=== PATIENT | male | born 1985 | race Caucasian/White ===

== ENCOUNTER 2024-09-21 07:33 | Outpatient (OUT) | payer OTHER, SELFPAY ==
--- OUTSIDE RECORDS SUMMARY | 2024-09-21 07:41 | XMS_ITS | Clinical Summary ---
Author Organization [facility] Address [id number] [address] [place] [address] Care Team Providers Care Records Technician Name Role Phone No Pcp, No Pcp Primary Care Provider Unavailabl e Allergies No known active allergies Medications No known medications Social History Tobacco Use Types Packs/Day Years Used Date Smoking Tobacco: Never Smokeless Tobacco: Never Alcohol Use Standard Drinks/Week Comments Not Currently 0 (1 standard drink = 0.6 oz pur e alcohol) Childcare Answer Date Recorded Childcare Unknown 10/04/2018 Employment Answer Date Recorded Employment Unknown 10/04/2018 Sex and Gender Information Value Date Recorded Sex Assigned at Not on file Legal Sex Male 11:37 AM EDT Gender Identity Not on file Sexual Orientation Not on file Last Filed Vital Signs Vital Sign Reading Time Taken Comments Blood Pressure 148/100 04/20/2021 1:02 PM EST Pulse 84 04/20/2021 1:02 PM EST Temperature 36.9 C (98.5 F) 04/20/2021 1:02 PM EST Respiratory Rate 20 04/20/2021 1:02 PM EST Oxygen Saturation 100% 04/20/2021 1:02 PM EST Inhaled Oxygen Concentration - - Weight 95.3 kg (210 lb) 04/20/2021 1:02 PM EST Height 175.3 cm (5' 9 ) 04/20/2021 1:02 PM EST Body Mass Index 31.01 04/20/2021 1:02 PM EST Plan of Treatment Not on file Medical Devices Not on file Insurance [employer] Care Teams Records Technician Relationship Specialty Start Date End Date No Pcp[place] [address] PCP - General Family Medicine 04/20/21
--- OUTSIDE RECORDS SUMMARY | 2024-09-21 07:41 | XMS_ITS | Clinical Summary ---
Author Organization [facility] Address [address] [place] [address] Care Team Providers Care Band Booker Name Role Phone Unavailable Primary Care Provider Unavailabl e Social History Tobacco Use Types Packs/Day Years Used Date Smoking Tobacco: Never Assessed Sex and Gender Information Value Date Recorded Sex Assigned at Not on file Legal Sex Male 11:47 PM EDT Gender Identity Not on file Sexual Orientation Not on file Plan of Treatment Not on file
--- NOTE | 2024-09-21 07:42 | XR_ITS ---
The [address] [address] Patient Name: CRYSTAL DURANT MRN: [id number] date: 1985 Sex: M Assigned Patient Location: [facility] Current Patient Location: [facility] Accession/Order Number: [id number] Exam Date: 09/21/2024 09:07 Report Date: 09/21/2024 09:13 At the request of: BARRY JI MD Procedure: XR ankle RT min 3V CLINICAL DATA: Patient was pushed by a forklift at work yesterday and has pain and tightness at the right foot and ankle today. RIGHT FOOT - 3 views COMPARISON: None AP, lateral and oblique views were obtained. There is no evidence of fracture or dislocation. There are no significant soft tissue abnormalities. XR/XR ankle RT min 3V IMPRESSION: NO ACUTE BONY INJURY. RIGHT ANKLE - 3 views COMPARISON: None AP, lateral and oblique views were obtained. There is no evidence of fracture or dislocation. Suspected os perineum an os trigonum are seen. The talar dome is intact. There are no significant soft tissue abnormalities. IMPRESSION: NO ACUTE BONY INJURY. Impression dictated by: Alyson Wall M.D. 09/21/2024 9:13 AM Dictation Location: [place] [address] Electronically authenticated by: [id number] Y Date: 09/21/2024 09:13
--- NOTE | 2024-09-21 07:42 | XR_ITS ---
The [address] [address] Patient Name: CRYSTAL DURANT MRN: [id number] date: 1985 Sex: M Assigned Patient Location: [facility] Current Patient Location: [facility] Accession/Order Number: [id number] Exam Date: 09/21/2024 09:07 Report Date: 09/21/2024 09:13 At the request of: BARRY JI MD Procedure: XR ankle RT min 3V CLINICAL DATA: Patient was pushed by a forklift at work yesterday and has pain and tightness at the right foot and ankle today. RIGHT FOOT - 3 views COMPARISON: None AP, lateral and oblique views were obtained. There is no evidence of fracture or dislocation. There are no significant soft tissue abnormalities. XR/XR foot RT min 3V IMPRESSION: NO ACUTE BONY INJURY. RIGHT ANKLE - 3 views COMPARISON: None AP, lateral and oblique views were obtained. There is no evidence of fracture or dislocation. Suspected os perineum an os trigonum are seen. The talar dome is intact. There are no significant soft tissue abnormalities. IMPRESSION: NO ACUTE BONY INJURY. Impression dictated by: Alyson Wall M.D. 09/21/2024 9:13 AM Dictation Location: [place] [address] Electronically authenticated by: [id number] Y Date: 09/21/2024 09:13
== END 2024-09-21 07:34 | disposition home or self-care (01) ==
PROVIDERS: PCP Nurse Practitioner Family; Visit Provider Preventive Medicine Preventive Medicine/Occupational Environmental Medicine
DX: G89.11 Acute pain due to trauma (principal)
CPT/HCPCS: 73610; 73630